=== PATIENT | male | born 1995 | race African-American/Black ===

== ENCOUNTER 2016-07-09 12:24 | Emergency (ER) | payer MEDICAID ==
[~2016-07-09] VITALS: Ht 185.4 cm; Wt 113.4 kg
[~2016-07-09 12:24] MED LIST: DILANTIN100 MG PO; DILANTIN30 MG PO; QUETIAPINE FUMA25 MG PO; STRATTERA10 MG PO; TRILEPTAL150 MG PO
[2016-07-09] MEDS ORDERED: AMOXICILLIN500 MG ORAL (12:47)
[2016-07-09] MEDS ORDERED: ARTIFICIAL TEAR15 ML BOTH EYES (12:47)
[2016-07-09 12:53] VITALS: BP 150/74
[2016-07-09 13:00] VITALS: BP 150/74
--- NOTE | 2016-07-09 14:05 | Emergency Room Report ---
History of Present Illness General Chief Complaint: General Complaint Source: Family Member Present Illness HPI The patient is a 20-year-old male with a history of seizures and developmental delay brought in by father for eye redness. The father states that the patient was sent home from school due to redness of the eyes for no known reason. He states this has not happened before. He states that the patient has been scratching the eyes. He denies any discharge from the eyes or excess tearing. He denies other symptoms including eye pain, blurred vision, N, V, F, chills, dizziness, sneezing, coughing, rash Allergies: Coded Allergies: Potato (Verified Allergy, Unknown, 07/09/16) Patient History Past Medical History: see triage record Pertinent Family History: none Reviewed Nursing Documentation: PMH: Agreed, PSxH: Agreed Nursing Documentation-PMH Past Medical History: No History, Except For Hx Asthma: Yes Hx Neurological Problems: Yes - ADHD, MENTALLY RETARDED, AUTISTIC Hx Seizures: Yes Review of Systems All Other Systems: negative except mentioned in HPI Physical Exam Vital Signs Date Time Temp Pulse Resp B/P Pulse Ox O2 Delivery O2 Flow Rate FiO2 07/09/16 12:31 98.2 103 16 163/76 99 Room Air Sp02 EP Interpretation: reviewed, normal General Appearance: no apparent distress, alert, GCS 15, non-toxic Head: normocephalic, atraumatic Eyes: bilateral eye EOMI, bilateral eye PERRL, bilateral eye Scleral Injection ENT: hearing grossly normal, no angioedema, normal voice, uvula midline, tonsillar swelling, pharyngeal erythema, tonsillar exudate Neck: full range of motion, supple/symm/no masses Respiratory: chest non-tender, lungs clear, normal breath sounds, speaking full sentences Musculoskeletal: back normal, gait/station normal, normal range of motion, non- tender Neurologic: alert, responsive, sensory intact Skin: normal color, no rash, warm/dry, well hydrated Lymphatic: no adenopathy Medical Decision Making PA Attestation Dr. Alexandre is my supervising physician. Patient management was discussed with my supervising physician Diagnostic Impression: Primary Impression: Allergic conjunctivitis Qualified Codes: H10.13 - Acute atopic conjunctivitis, bilateral Additional Impression: Pharyngitis, acute Qualified Codes: J02.9 - Acute pharyngitis, unspecified ER Course The patient is a 20-year-old male presenting for eye redness. Differential diagnosis include but not limited to allergic/bacterial/viral conjunctivitis, pharyngitis, sinusitis, AOM, bronchitis, PNA Physical exam: Afebrile. No apparent distress HEENT exam: Eyes: bilat injection. PERRL. No DC. No lid edema. There is bilateral tonsillar edema, erythema, and exudate. Uvula midline. Moist mucous membranes. There is bilateral cervical lymphadenopathy. Lungs are clear to auscultation bilaterally Skin is warm and dry. No rash The patient will be discharged home with a prescription for amoxicillin and eye drops and is given ER precautions. Patient will followup with primary care Last Vital Signs Date Time Temp Pulse Resp B/P Pulse Ox O2 Delivery O2 Flow Rate FiO2 07/09/16 13:00 98.2 74 16 150/74 99 Room Air Status: improved Disposition: HOME, SELF-CARE Condition: Improved Scripts Dextran 70/Hypromellose (ARTIFICIAL TEARS EYE DROPS*) 15 Ml Drops 1 DROP BOTH EYES PRN, #15 ML 0 Refills Prov: ELIZABETH CLANCY.ASusana 07/09/16 Amoxicillin* (AMOXIL*) 500 Mg Capsule 500 MG ORAL Q12HR, #20 CAP Prov: ELIZABETH CLANCY P.A. 07/09/16 Referrals: NOT CHOSEN [facility]/MD,REFERRING (PCP) Patient Instructions: Pharyngitis, Allergic Conjunctivitis Additional Instructions: I discussed my findings with the patient's father. All questions and concerns have been answered. Treatment and medication compliance have been addressed. I advised the patient that they need to follow up with PMD in 3-5 days. Return to ED if pain remains or worsens, cough worsens or remains, you notice blood in your sputum, you notice wheezing, you experience a fever, or if needed for any reason. Patient verbalized understanding of discharge instructions. ELIZABETH CLANCY July 09, 2016 14:05
== END 2016-07-09 13:01 | disposition home or self-care (01) ==
LOC: EMR 12:45
DX: H10.13 Acute atopic conjunctivitis, bilateral (principal); J02.9 Acute pharyngitis, unspecified; J45.909 Unspecified asthma, uncomplicated
CPT/HCPCS: 99284

== ENCOUNTER 2018-01-09 09:43 | Emergency (ER) | payer MEDICAID ==
[~2018-01-09] VITALS: Ht 182.9 cm; Wt 136.1 kg
[~2018-01-09 09:43] MED LIST changes: +AMOXICILLIN500 MG ORAL; +ARTIFICIAL TEAR15 ML BOTH EYES
--- NOTE | 2018-01-09 10:40 | Emergency Room Report ---
History of Present Illness General Chief Complaint: Lower Extremity Injury Source: Family Member Present Illness HPI This patient has a history of developmental delay. He is accompanied by his mother. She states that several weeks ago he fell off a skateboard and fractured his left ankle. She states that he was seen at [facility] and underwent an open reduction and internal fixation. He did stay in rehabilitation for 2-1/2 weeks. She states that he came home the day before [employer]. She states that since that time he is noncompliant and will weight-bear on the left foot. The left leg also has become swollen and the patient complains of pain. There were no other injuries. There are no other complaints. Allergies: Coded Allergies: Potato (Verified Allergy, Unknown, 07/09/16) Patient History Past Medical History: see triage record, asthma, seizures, other - Developmental delay Social History: Denies: smoking, alcohol use, drug use Reviewed Nursing Documentation: PMH: Agreed; PSxH: Agreed Nursing Documentation-PMH Hx Asthma: Yes Hx Neurological Problems: Yes - ADHD, MENTALLY RETARDED, AUTISTIC Hx Seizures: Yes Review of Systems All Other Systems: negative except mentioned in HPI Physical Exam Vital Signs Date Time Temp Pulse Resp B/P (MAP) Pulse Ox O2 Delivery O2 Flow Rate FiO2 01/09/18 10:04 98.2 100 18 127/83 97 Room Air Sp02 EP Interpretation: reviewed, normal General Appearance: no apparent distress, alert, GCS 15, non-toxic Head: normocephalic, atraumatic Eyes: bilateral eye normal inspection, bilateral eye PERRL ENT: hearing grossly normal, normal pharynx, no angioedema, normal voice Neck: full range of motion, supple/symm/no masses Respiratory: no respiratory distress, no retraction, no accessory muscle use, speaking full sentences Cardiovascular #1: regular rate, rhythm, no edema Gastrointestinal: normal bowel sounds, non tender, soft, non-distended, no guarding, no rebound Rectal: deferred Musculoskeletal: back normal, normal range of motion, other - LLE splint in place. LLE swelling to knee Neurologic: alert, responsive, motor strength/tone normal, sensory intact, other - At baseline. Psychiatric: mood/affect normal, no suicidal/homicidal ideation Skin: normal color, no rash, warm/dry, well hydrated Medical Decision Making Diagnostic Impression: Primary Impression: Lymphedema ER Course This patient presents for evaluation of his hardware and the fracture in his left ankle. The mother was concerned because he is developmentally delayed and has been bearing weight on the left ankle. There is also been some leg swelling so I did obtain an ultrasound of the left lower extremity. There is no DVT. X-ray of the left ankle shows intact hardware and good alignment. At this time, I did not identify an emergency medical condition. The parent is instructed to follow closely with the orthopedic surgeon. The patient does have a walker, wheelchair and other assistive devices. The patient is given close return precautions and follow-up instructions. Other X-Ray Diagnostic Results Other X-Ray Diagnostic Results : X-Ray ordered: L.ankle, LLE DVT # of Views/Limited Vs Complete: Complete Indication: Swelling Interpretation: other - See EMR for official reports. Healing fx, hardware in place. No DVT Impression: Other - See above Electronically Signed by: Jl Last Vital Signs Date Time Temp Pulse Resp B/P (MAP) Pulse Ox O2 Delivery O2 Flow Rate FiO2 01/09/18 10:04 98.2 100 18 127/83 97 Room Air Status: improved Disposition: HOME, SELF-CARE Condition: Improved Referrals: NON PHYSICIAN (PCP) Pretty Napier DO Jan 09, 2018 10:40
--- NOTE | 2018-01-09 12:08 | Diagnostic Imaging Report ---
Indication: Pain, status post fall Technique: 3 views of the left ankle Comparison: none Findings: Overlying splint may obscure bony detail slightly. Patient is status post surgical repair of distal fibular fracture with lateral sideplate and screws, including one screw extending into the tibia. The hardware appears intact. The fracture appears well aligned on the AP and oblique views, slightly posteriorly angulated on the lateral view.. There are overlying skin krunal. A small osseous fragment is seen adjacent to the tip of the tibial screw, which protrudes beyond the edge of the tibia. Impression: Postsurgical and posttraumatic changes, as described. No definite evidence of acute reinjury.
[2018-01-09] MEDS ORDERED: Ketorolac 60mg Inj IM ONE (12:15)
--- NOTE | 2018-01-09 12:20 | Diagnostic Imaging Report ---
Indication: Left leg edema Technique: Grayscale and duplex images of the left lower extremity veins Comparison: none Findings: On the left, grayscale duplex images demonstrate no evidence of intraluminal thrombus. Normal phasic Doppler waveforms, demonstrating normal augmentation response and no evidence of valvular insufficiency. Normal compressibility of all deep venous structures. Patent compressible left greater saphenous vein. Impression: Negative for left lower extremity deep venous thrombosis
[2018-01-09 14:00] VITALS: BP 126/82
[2018-01-09] MEDS ORDERED: IBUPROFEN800 MG ORAL (14:10)
== END 2018-01-09 14:21 | disposition home or self-care (01) ==
LOC: EMR 10:21
DX: I89.0 Lymphedema, not elsewhere classified (principal); S82.892D Other fracture of left lower leg, subsequent encounter for closed fracture with routine healing; R62.59 Other lack of expected normal physiological development in childhood; F90.9 Attention-deficit hyperactivity disorder, unspecified type; F84.0 Autistic disorder
CPT/HCPCS: 93971; 96372; 99284

== ENCOUNTER 2018-03-25 13:16 | Emergency (ER) | payer MEDICAID ==
[~2018-03-25] VITALS: Ht 182.9 cm; Wt 124.7 kg
[~2018-03-25 13:16] MED LIST changes: +IBUPROFEN800 MG ORAL
[2018-03-25 13:24] VITALS: BP 136/93
--- NOTE | 2018-03-25 13:24 | NUR ---
ED Nurse Note: PT WALKED IN TO ER TODAY FROM HOME. AOX4. MOTHER AT BEDSIDE. PER PT'S MOTHER, PT HAS HX OF MENTAL RETARDATION. PT'S MOTHER STATES THAT PT IS S/P LEFT LEG SURGERY ON 01/04/18. PT'S MOTHER BROUGHT PT INTO ER TODAY DUE TO CONCERN OF POSSIBLE INFECTION TO SURGERY SITE. PER PT'S MOTHER, PT WAS SUPPOSED TO FOLLOW UP AFTER SURGERY BUT NEVER DID DUE TO DISCONTINUATION OF INSURANCE. PT PRESENT WITH ABOUT 7" INCISION CLOSED WITH ZANDER. SCANT SANGUINOPURULENT DRAINAGE NOTED TO INFERIOR PORTION OF INCISION SITE AND SITE WARM TO TOUCH. PT AFEBRILE, ORAL TEMP: 97.3F AT BEDSIDE.
--- NOTE | 2018-03-25 13:30 | NUR ---
ED Nurse Note: DR. Tuttle AT BEDSIDE FOR STAPLE REMOVAL. 18 ZANDER REMOVED FROM SURGERY SITE. PT TOLERATED PROCEDURE WELL.
[2018-03-25] MEDS ORDERED: CEPHALEXIN500 MG ORAL (13:36)
[2018-03-25] MEDS ORDERED: Bacitracin Oint UD TOPIC ONE ×2 (13:37→13:45)
[2018-03-25] MEDS ORDERED: MUPIROCIN15 GM TOPIC (13:37)
--- NOTE | 2018-03-25 13:41 | NUR ---
ED Nurse Note: SURGERY SITE CLEANED, BACITRACIN APPLIED, AND LEG WRAPPED AND PLACED BACK INTO BOOT. PT TOLERATED PROCEDURE WELL.
--- NOTE | 2018-03-25 13:46 | NUR ---
ED Nurse Note: PT LAYING PEACEFULLY IN BED IN NAD. AOX4. MOTHER REMAINS AT BEDSIDE. PRESCRIPTIONS AND DISCHARGE PAPERWORK EXPLAINED TO PT AND PARENT. BOTH VERBALIZE UNDERSTANDING AND ALL QUESTIONS ANSWERED. PRESCRIPTIONS AND DISCHARGE PAPERWORK GIVEN TO PARENT AND ID WRISTBAND REMOVED FROM PT. PT WALKED OUT OF ER WITH STEADY GAIT AND ALL BELONGINGS ACCOMPANIED BY MOTHER.
[2018-03-25 13:52] VITALS: BP 124/86
--- NOTE | 2018-03-26 06:59 | Emergency Room Report ---
History of Present Illness General Chief Complaint: Wound Recheck/Suture Removal Source: Patient, Medical Record Present Illness HPI 22-year-old male presents ED for evaluation. Brought in by mother for evaluation of his left ankle. Patient has MR and autism. Mother states that patient had surgery on his left ankle in December 2017 for fracture. Patient was supposed follow-up with orthopedics to have krunal removed but states that their insurance lapsed and were unable to follow-up. Mother states that patient has been pulling the krunal out of his skin. Also has noticed some discharge from the staple site. Patient has autism and is able to provide a limited history. Patient states there is pain to his left ankle but is unable to provide more information. No other aggravating relieving factors. Denies any other associated symptoms Allergies: Coded Allergies: Potato (Verified Allergy, Unknown, 07/09/16) Patient History Past Medical History: asthma, psych hx, other - MR, autism Past Surgical History: none Pertinent Family History: none Social History: Denies: smoking, alcohol use, drug use Immunizations: UTD Reviewed Nursing Documentation: PMH: Agreed; PSxH: Agreed Nursing Documentation-PMH Past Medical History: No History, Except For Hx Asthma: Yes Hx Neurological Problems: Yes - ADHD, MENTALLY RETARDED, AUTISTIC Hx Seizures: Yes Review of Systems All Other Systems: negative except mentioned in HPI Physical Exam Vital Signs Date Time Temp Pulse Resp B/P (MAP) Pulse Ox O2 Delivery O2 Flow Rate FiO2 03/25/18 13:19 105 23 136/92 100 Room Air 03/25/18 13:24 97.3 Sp02 EP Interpretation: reviewed, normal General Appearance: no apparent distress, alert, non-toxic, other - MR Head: normocephalic Eyes: bilateral eye normal inspection, bilateral eye PERRL ENT: normal ENT inspection Neck: normal inspection Respiratory: normal inspection Cardiovascular #1: normal inspection Gastrointestinal: normal inspection Rectal: deferred Genitourinary: no CVA tenderness Musculoskeletal: tender Neurologic: other - MR Psychiatric: other - MR Skin: other - surgical incision on L lateral ankle healing, krunal noted ( some removed). some discharge noted from staple site Lymphatic: normal inspection Medical Decision Making Diagnostic Impression: Primary Impression: Surgical site infection ER Course Hospital Course 22 yo M presents to ED with pain/swelling, discharge from L ankle. s/p surgery in Dec 2017 Differential diagnoses include: Cellulitis, abscess, postoperative infection Clinical course Patient placed on stretcher. After initial history, physical exam reveals a male in no acute distress. On exam the surgical incision site appears healing. There are krunal noted some have been removed by the patient. There is no significant erythema or induration. Mother states that they're unable to follow-up with orthopedics at this time because of insurance lapse. It is been nearly 2-1/2 months since surgery and the surgical site appears very clearly well-healed. There is some areas of discharge noted when the krunal are being removed. This is likely because the krunal have been in for so long no indication of a postoperative infection or a septic joint. Patient is afebrile, nontoxic appearing. I removed the krunal. Wound is irrigated and cleaned with dressing applied. Discussed findings with the mother. We will place patient on antibiotics for surgical site infection. I strongly recommended to the mother that she follows up with orthopedics to perform the surgery. She states she'll see the orthopedic doctor this week. I will also provide orthopedic referral in case she is unable to see the orthopedic doctor Safe for discharge and close outpatient follow-up Diagnosis - surgical site infection stable and discharged to home with prescription for prednisone Keflex. wound care instructions given. Instructed to followup with ortho. Instructed return to ED if symptoms recur or worsen Last Vital Signs Date Time Temp Pulse Resp B/P (MAP) Pulse Ox O2 Delivery O2 Flow Rate FiO2 03/25/18 13:52 97.4 92 15 124/86 100 Room Air Status: improved Disposition: HOME, SELF-CARE Condition: Stable Scripts Mupirocin (MUPIROCIN) 15 Gm Cream..g. 1 APPLIC TOPIC THREE TIMES A DAY, #15 GM Prov: Ananth Simmons MD 03/25/18 Cephalexin* (KEFLEX*) 500 Mg Capsule 500 MG ORAL EVERY 6 HOURS for 7 Days, CAP Prov: Ananth Simmons MD 03/25/18 Referrals: [facility],REF (PCP) Patient Instructions: Surgical Site Infections FAQs - LE Additional Instructions: Orthopedic urgent care: [address] [facility] [address] [place] [address] email: Ananth Simmons MD Mar 26, 2018 06:59
== END 2018-03-25 13:53 | disposition home or self-care (01) ==
LOC: EMR 13:36
DX: T81.41XA Infection following a procedure, superficial incisional surgical site, initial encounter (principal); Y83.8 Other surgical procedures as the cause of abnormal reaction of the patient, or of later complication, without mention of misadventure at the time of the procedure; Y92.9 Unspecified place or not applicable; J45.909 Unspecified asthma, uncomplicated; F90.9 Attention-deficit hyperactivity disorder, unspecified type; F84.0 Autistic disorder
CPT/HCPCS: 99283

== ENCOUNTER 2018-05-11 11:36 | Emergency (ER) | payer MEDICAID ==
[~2018-05-11] VITALS: Ht 182.9 cm; Wt 127.0 kg
[~2018-05-11 11:36] MED LIST changes: +CEPHALEXIN500 MG ORAL; +MUPIROCIN15 GM TOPIC
--- NOTE | 2018-05-11 11:52 | NUR ---
ED Nurse Note: PT WALKED IN TO ER TODAY FROM HOME. AOX4. MOTHER AT BEDSIDE WHO STATES PT HAS HX OF MENTAL RETARDATION. PER PT'S MOTHER, PT C/O OF ITCHING, SWELING AND REDNESS OF LEFT EYE X THIS MORNING. PT DENIES ANY CHANGES IN VISION OR DISCHARGE. ON ASSESSMENT, SCLERA APPEARS RED WITH NO ACTIVE DRAINAGE. PT NOT COMPLAINING OF PAIN OR ITCHING AT THIS TIME. OF NOTE, UNABLE TO ASSESS VISUAL ACUITY DUE TO MENTAL RETARDATION.
[2018-05-11 11:53] VITALS: BP 108/64
[2018-05-11] MEDS ORDERED: Fluorescein Strips LEFT EYE ONE (12:15)
[2018-05-11] MEDS ORDERED: Tetracaine 0.5% Opth 4ml Soln LEFT EYE ONE (12:15)
--- NOTE | 2018-05-11 12:52 | Emergency Room Report ---
History of Present Illness General Chief Complaint: Eye Problems Source: Patient Present Illness HPI At school they noticed that his left eye was bothering him. It was closed shut with crusting. No one saw any trauma. No fevers. No alleged sore throat or cough,. He has developmental delay and unable to answer most questions. Seen in the past with allergic conjunctivitis. At that time bilateral eye redness and scratching. H/O seizures - on Trileptal and Dilantin. No recent seizures. Also takes Seroquel. Allergies: Coded Allergies: Potato (Verified Allergy, Unknown, 07/09/16) Patient History Limited by: medical condition Past Medical History: see triage record, old chart reviewed Social History: Denies: smoking, alcohol use, drug use Social History Narrative developmental delay, with Mom Reviewed Nursing Documentation: PMH: Agreed; PSxH: Agreed Nursing Documentation-PMH Past Medical History: No History, Except For Hx Asthma: Yes Hx Neurological Problems: Yes - ADHD, MENTALLY RETARDED, AUTISTIC Hx Seizures: Yes Review of Systems All Other Systems: limited Physical Exam Vital Signs Date Time Temp Pulse Resp B/P (MAP) Pulse Ox O2 Delivery O2 Flow Rate FiO2 05/11/18 11:47 98.6 103 20 97/59 97 Room Air Sp02 EP Interpretation: reviewed, normal General Appearance: well appearing, no apparent distress, alert, other - occasional attempts to speak, not intelligeble Head: normocephalic, atraumatic Eyes: left eye Scleral Injection - no flouroscene uptake, left eye other - beige crusting, no cobblestoning; bilateral eye PERRL ENT: normal pharynx, moist mucus membranes Neck: normal inspection, full range of motion Respiratory: lungs clear Cardiovascular #1: regular rate, rhythm Cardiovascular #2: 2+ radial (L) Gastrointestinal: normal inspection, overweight Musculoskeletal: digits/nails normal, gait/station normal, normal range of motion Neurologic: alert, normal gait, grossly normal Psychiatric: other - poor understanding of commands, but cooperative Skin: no rash Lymphatic: other - no preauricular node Medical Decision Making Diagnostic Impression: Primary Impression: Conjunctivitis Qualified Codes: H10.32 - Unspecified acute conjunctivitis, left eye ER Course Patient with L eye redness and irritation. DDx: conjunctivitis - bacterial, viral, allergic - corneal abrasion amongst others. Tetracaine and florescence exam with maria isabel lamp. No corneal lesion. Based on appearance on unilateral involvement - most likely bacterial conjunctivitis. Discussed findings with Mom. Patient stable for outpatient observation and treatment. Last Vital Signs Date Time Temp Pulse Resp B/P (MAP) Pulse Ox O2 Delivery O2 Flow Rate FiO2 05/11/18 12:55 98.7 86 17 116/76 99 Room Air Status: improved Disposition: HOME, SELF-CARE Condition: Improved Scripts Sulfacetamide Sodium (BLEPH-10) 5 Ml Drops 2 ML OP Q6HR, #5 ML Prov: Tino Don MD 05/11/18 Tino Don MD May 11, 2018 12:52
[2018-05-11] MEDS ORDERED: BLEPH-105 ML OP (12:54)
[2018-05-11 12:55] VITALS: BP 116/76
--- NOTE | 2018-05-11 12:57 | NUR ---
ED Nurse Note: PT SITTING PEACEFULLY IN BED IN NAD. AOX4. MOTHER AT BEDSIDE. PRESCRIPTIONS AND DISCHARGE PAPERWORK EXPLAINED TO PARENT. PARENT VERBALIZES UNDERSTANDING AND ALL QUESTIONS ANSWERED. PRESCRIPTIONS AND DISCHARGE PAPERWORK GIVEN TO PARENT AND ID WRISTBAND REMOVED FROM PT. PT WALKED OUT OF ER WITH STEADY GAIT AND ALL BELONGINGS ACCOMPANIED BY MOTHER.
== END 2018-05-11 12:59 | disposition home or self-care (01) ==
LOC: EMR 12:54
DX: H10.9 Unspecified conjunctivitis (principal); J45.909 Unspecified asthma, uncomplicated; F84.0 Autistic disorder
CPT/HCPCS: 99282